=== PATIENT | male | born 1950 | race Caucasian/White ===

== ENCOUNTER → 2024-09-30 | Outpatient (CLI) | payer MEDICARE | LOC: LAB 07:45 → LAB SHORT 07:45 | DX: C09.9 Malignant neoplasm of tonsil, unspecified (principal) | CPT/HCPCS: 88305; 88341; 88342 ==

== ENCOUNTER 2024-11-07 09:06 | Day surgery (SDC) | payer MEDICARE ==
[~2024-11-07] VITALS: Ht 170.2 cm; Wt 77.5 kg
[~2024-11-07 09:06] MED LIST: BUPR150ER PO; CLOBETASOL EMOL15 G1; EPIPEN0.3 MG/0.3 IM; LOSA50 PO; Lactated Ringer's 1,000 ML IV SCH; MONT10T PO; MULTI-VITAMIN1 EAC2 PO; NAPR500 PO; NOVOLOG FL100 UNIT/2 SC; NYSTRIT TOP; TADA10TA PO; ZYRTEC10 M2 PO
[2024-11-07 09:51] VITALS: BP 152/64
--- NOTE | 2024-11-07 10:00 | NUR ---
History, Chart, Medications and Allergies reviewed before start of procedure. Pre-Op teaching done. Pt verbalizes understanding. Patient confirms NPO status and agrees with scheduled surgery. Patient States Post-Procedure ride home has been arranged WITH DAUGHTER, NEW.
[2024-11-07] MEDS ORDERED: CeFAZolin Sodium 2,000 MG in NS 100 ML IV SCH (10:05)
[2024-11-07] MEDS ORDERED: propofoL 40 ML IV ONE (11:26)
--- NOTE | 2024-11-07 11:33 | NUR ---
11/07/24 1133 Lisa Rojas AT START OF SEDATION: MONITOR INTACT WITH CONTINUOUS PULSE OXIMETRY, CONTINUOUS END TITAL CO2, 3-LEAD EKG AND INTERMITTENT BLOOD PRESSURE.
[2024-11-07 11:55] VITALS: BP 129/63
[2024-11-07 12:05] VITALS: BP 131/62
--- NOTE | 2024-11-07 12:26 | NUR ---
1150 REPORT RECEIVED FROM HEATHER BALDERAS. VSS. PT ON RA. PT ABLE TO REPOSITION SELF IN BED. PT DENIES PAIN, NAUSEA OR OTHER DISCOMFORTS. PT HAS AND DAUGHTER AT BEDSIDE. PT HAS GAUZE DRSG TO PEG TUBE ON ABD THAT IS CDI.
--- NOTE | 2024-11-07 12:27 | NUR ---
Patient up to Ambulate independently. Gait steady. VSS AND CONSISTENT WITH PT BASELINE. PT HAS NO COMPLAINTS AND VERBALIZES READINESS TO GO HOME. Discharge instructions reviewed with patient, HIS , AND HIS DAUGHTER. Patient verbalizes understanding. COPY GIVEN TO PT TO TAKE HOME. PER PT AND HIS FAMILY, THEY WILL REPORT TO PLASTIC SURGERY SPECIALIST FOR FURTHER EDUCATION ON PEG TUBE NEEDED. Dressing to procedure site clean, dry, intact with no visible drainage, swelling, erythema or bruising noted. Patient States Post-Procedure ride home has been arranged. Discharged via wheelchair to private car for ride home. PT BELONGINGS RETURNED TO PT.
== END 2024-11-07 12:17 | disposition home or self-care (01) ==
LOC: ORSCMMR 09:06 → ORD 10:30 → ORSCMMR 12:17
PROVIDERS: Surgery
PROC: 0DH63UZ Insertion of Feeding Device into Stomach, Percutaneous Approach (ICD-10-PCS; principal; 2024-11-07 10:30)
DX: C09.9 Malignant neoplasm of tonsil, unspecified (principal); R13.12 Dysphagia, oropharyngeal phase; I10 Essential (primary) hypertension; E11.9 Type 2 diabetes mellitus without complications; E78.5 Hyperlipidemia, unspecified; Z79.4 Long term (current) use of insulin; Z79.899 Other long term (current) drug therapy
CPT/HCPCS: C1769; J0690; J2704; J7120